=== PATIENT | female | born 1980 | race Caucasian/White ===

== ENCOUNTER 2017-12-02 08:19 | Emergency (ER) | payer OTHER ==
[2017-12-02 08:28] VITALS: TEMP 98.2
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
[2017-12-02 09:39] VITALS: BP 128/80; PULSE 72; RESP 18; O2SAT 97
== END 2017-12-02 09:37 | disposition home or self-care (01) ==
LOC: CED 08:19
DX: S09.90XA Unspecified injury of head, initial encounter (principal); S20.229A Contusion of unspecified back wall of thorax, initial encounter; W01.198A Fall on same level from slipping, tripping and stumbling with subsequent striking against other object, initial encounter; Y99.8 Other external cause status; Y93.89 Activity, other specified
CPT/HCPCS: 70450-PO